=== PATIENT | female | born 1990 | race African-American/Black ===

== ENCOUNTER 2025-01-11 22:00 | Emergency (ER) | payer MEDICAID ==
[~2025-01-11] VITALS: Ht 160 cm; Wt 89.0 kg
[2025-01-11 22:11] VITALS: O2SAT 97
[2025-01-11 22:12] VITALS: BP 161/107; PULSE 112; RESP 20; TEMP 37.3; O2SAT 99
[2025-01-11] MEDS ORDERED: CLINDAMYCIN 600 MG in DEXTROSE 5% WATER 50 ML IV ONE (22:45)
[2025-01-11] MEDS: KETOROLAC 15MG/ML VIAL IV ONE (23:58)
[2025-01-11] MEDS: CLINDAMYCIN 600MG PREMIX 50 ML IV NR (23:59)
[2025-01-12] MEDS: SODIUM CHLORIDE 0.9% 1,000 ML IV ONE
[2025-01-12] MEDS: DEXAMETHASONE 4MG/ML 1ML VIAL IV ONE (00:03)
[2025-01-12] MEDS: VISCOUS LIDOCAINE 2% 15 ML UDC MM STA (00:05)
[2025-01-12] MEDS ORDERED: IBUP-2029 MT (01:04)
[2025-01-12] MEDS ORDERED: CLIN-194 MT (01:04)
[2025-01-12] MEDS ORDERED: FLUC150T46 MT (01:04)
== END 2025-01-12 01:26 | disposition home or self-care (01) ==
LOC: ER 22:00
DX: J03.90 Acute tonsillitis, unspecified (principal); I10 Essential (primary) hypertension; Z88.0 Allergy status to penicillin; Z98.890 Other specified postprocedural states
CPT/HCPCS: 99284; 96365; 96375 ×2; 87430; 87070; J1885; J1100; J3490; J7030; J7060